=== PATIENT | male | born 1965 | race Caucasian/White ===

== ENCOUNTER 2017-02-25 09:26 | Emergency (ER) | payer SELFPAY ==
[2017-02-25 09:39] VITALS: BP 130/69; BMI 28.3
--- NOTE | 2017-02-25 10:31 | DR.MBACK ---
HPI - Time Seen Time seen: 10:30 - HPI Comment HPI Comment: LOWER BACK PAIN NOTED WHEN PATIENT LIFTED YESTERDAY. DENIES PARESTHESIA. - Complaint Chief Complaint Doctors Comments: LOWER BACK PAIN. Chief Complaint:: EMS BROUGHT PT IN WITH C/O BACK PAIN SINCE YESTERDAY WHILE PICKING UP THINGS IN THE YARD AND THAT HE THINKS HE MAY HAVE RUPTURED SOMETHING..BR - Reviewed Nurses Notes Review: Yes - Source History Provided: Patient, EMS - Mode of Arrival Mode of Arrival: EMS - Timing Onset of Chief Complaint: 02/25/17 - Duration Duration: Constant Duration: Days - Location Back Pain Location: Lumbar Radiation To: None - Severity Severity: Moderate - Quality Quality: Aching, Sharp - Context Onset: Lifting History of: None - Modifying Factors Worsened By: Twisting - Associated Signs and Symptoms Back Pain Symptoms: None Numbness: None Weakness: None PMH - PMH Past Medical History: No Past Medical History Comment: ORTHO Past Surgical History: Yes Surgical History: Ortho Surgery - Family History History of Family Medical Conditions: Yes Family Medical History: Cancer, Sudden Cardiac , Hypertension - Social History Does patient currently use any type of tobacco product: Yes Have you used tobacco products in the last 12 months: Yes Type of Tobacco Use: Cigarettes How many years tobacco product used: 30 Does any household member use tobacco: No Alcohol Use: None Do you use any recreational Drugs:: No Lives With: Family Lives Where: Home - infectious screening In the last 2 months have you had wt loss of >10#?: NO Have you had fever, night sweats or hemotysis?: No Have you traveled outside the country in the last 6 months?: No Isolation: Standard ROS - Review of Systems Constitutional: No Symptoms Reported Eyes: No Symptoms Reported ENTM: No Symptoms Reported Respiratoy: No Symptoms Reported Cardiovascular: No Symptoms Reported Gastrointestinal/Abdominal: No Symptoms Reported Genitourinary: No Symptoms Reported Neurological: No Symptoms Reported Musculoskeletal: Back Pain, Back Integumentary: No Symptoms Reported Hematologic/Lymphatic: No Symptoms Reported Endocrine: No Symptoms Reported All Other Systems: Reviewed and Negative PE - Vital Signs Vitals: Temperature 98.4 F Pulse Rate 82 Respiratory Rate 22 Blood Pressure [Right Arm] 127/69 Blood Pressure [Left Arm] 108/61 Blood Pressure 130/69 O2 Sat by Pulse Oximetry 98 - General Limitations: No Limitations General Appearance: Alert - Head Head Exam: Normal Inspection - Eyes Eye exam: Normal Appearance - ENT ENT Exam: Normal External Ear Exam - Chest Chest Inspection: Symmetric Chest Wall Rise - Respiratory Respiratory Exam: Bilateral Clear to Auscultation - Cardiovascular Cardiovascular Exam: Regular Rate, Normal Rhythm, Normal Heart Sounds - Abdominal Exam Abdominal Exam: Normal Inspection - Rectal Rectal Exam: Deferred - Genitourinary Exam: Male: Deferred - Extremities Extremities Exam: Normal Inspection - Back Back Exam: Paraspinal Tenderness, Vertebral Tenderness (LUMBER SPINE) - Neurological Neurological Exam: Alert, Oriented X3 - Psychiatric Psychiatric Exam: Normal Affect, Normal Mood - Skin Skin Exam: Normal Color MDM - Differential Diagnosis Differential Diagnosis: DJD, Fracture, Strain Course - Treatment Treatment: SEE ORDERS. - Education/Counseling Education/Counseling: Patient, Education Educated On: Diagnosis, Needs for Follow Up ROR - XRAY XRAY Interpreted by: Radiologist XRAY Findings: REP[ORT DISCUSS WITH PATIENT. - Diagnosis Discharge Problem: Back strain Qualifiers: Encounter type: initial encounter Qualified Code(s): S39.012A - Strain of muscle, fascia and tendon of lower back, initial encounter DJD (degenerative joint disease) Qualifiers: Osteoarthritis location: multiple joints Osteoarthritis type: unspecified Qualified Code(s): M15.9 - Polyosteoarthritis, unspecified - Discharge Plan Disposition: 01 HOME, SELF-CARE Condition: Stable Prescriptions: Cyclobenzaprine HCl [FLEXERIL 10 MG *] 10 mg PO TID PRN #20 tab PRN Reason: Ibuprofen [MOTRIN TAB 600 MG *] 600 mg PO TID PRN #20 tab PRN Reason: Pain/Inflammation Tramadol HCl 50 mg PO TID PRN #15 tablet PRN Reason: - Follow ups/Referrals Follow ups/Referrals: [facility],None [Primary Care Provider] - 3 days - Instructions Instructions: Lumbosacral Strain Additional Instructions: RETURN TO ED IF WORSE.
[2017-02-25] MEDS ORDERED: TORADOL 30 MG VIAL IVP ONE (10:32)
[2017-02-25] MEDS ORDERED: NORFLEX INJ IM ONE (10:32)
[2017-02-25] MEDS ORDERED: NORFLEX INJ ONE (10:39)
[2017-02-25] MEDS ORDERED: TORADOL 30 MG VIAL ONE (10:39)
--- NOTE | 2017-02-25 11:21 | CT ---
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 Sagittal and coronal reformats were performed and review ed. Radiation dose reduction techniques were performed utilizing adjustment for MA/kVP based on patient body size. Findings: There is no fracture or spondylolisthesis within the lumbar spine. There is moderate spondylosis at L4-5 and L5-S1 with disc osteophyte complexes noted at both levels. There is mild facet arthropathy at L3-4, L4-5 and L5-S1. There is at least mild bony neural foraminal narrowing on the right at L4-5 and L5-S1 and on the left at L5-S1. No significant spinal canal stenosis is visualized. The SI joints are intact. Impression: See above. Reported By:
== END 2017-02-25 11:46 | disposition home or self-care (01) ==
LOC: ER 09:26
DX: S39.012A Strain of muscle, fascia and tendon of lower back, initial encounter (principal); M15.8 Other polyosteoarthritis; Y33.XXXA Other specified events, undetermined intent, initial encounter; Y92.096 Garden or yard of other non-institutional residence as the place of occurrence of the external cause
CPT/HCPCS: 72131; 96365; 96372; 96374; 99282; 99283; J1885; J2360